=== PATIENT | male | born 1965 | race Caucasian/White ===

== ENCOUNTER 2025-04-24 19:20 | Emergency (ER) | payer OTHER, SELFPAY ==
[2025-04-24 19:20] VITALS: BP 134/93; PULSE 99; RESP 18; TEMP 37.3; O2SAT 100; BMI 28.3
--- NOTE | 2025-04-24 19:43 | EX.ED.DYSGE1 ---
HPI History of Present Illness Chief Complaint: Other, Pain/Inj Informant: patient Onset/Context/Timing Onset: Today Context: Gradual Onset Timing: Continuous Current Severity: Mild Maximum Severity: Mild Narrative Narrative: 59-year-old male no seen past medical history. States today noticed a bump on his neck that he thinks began yesterday. Denies any fever or chills. No discharge. No prior history. Denies recent illness. Prior similar symptoms: No Recent Illness/Hospitalization: No PFSH PFSH Medical History no medical history no medical history Home Medications ?Medication ?Instructions ?Recorded ?Last Taken ?Type cephalexin 500 mg capsule 500 mg PO Q6 #40 CAPSULES 04/24/25 Unknown Rx Allergy/AdvReac Type Severity Reaction Status Date / Time No Known Allergies Allergy Verified 04/24/25 19:31 Surgical History no surgical history no surgical history ROS ROS ED ROS Narrative Denies recent illness. Constitutional Constitutional ED: Denies chills or fever(s) Eyes Eyes: Denies blurry vision ENT ENT ED: Denies ear pain Cardiovascular Cardiovascular: Denies chest pain Respiratory/Chest Respiratory/Chest: Denies cough or dyspnea Gastrointestinal Gastrointestinal: Denies abdominal pain Genitourinary Genitourinary ED: Denies dysuria or hematuria Musculoskeletal Musculoskeletal: Denies arthralgias Integumentary Reports abscess Neurologic Neurologic: Denies headache(s) Psychiatric Psychiatric: Denies anxiety or depression Endocrine Endocrinology: Denies cold intolerance Hematologic/Lymphatic Hematologic/Lymphatic: Reports none Allergic/Immunologic Allergic/Immunologic ED: Denies mouth swelling, tongue swelling or urticaria EXAM Physical Exam Narrative Exam Narrative: Well-appearing 39-year-old male sitting upright on the edge of the bed. Vital signs stable afebrile. No distress. 2 family members present. H EENT exam appears Ramming Actilite. Active motions are intact. Moist with membranes. Neck right side of his neck at the base between the neck and the shoulder is an area parotid inch long and half an inch wide and it looks like indurated skin. Proximately ingrown hair. It does look infected. There is no fluctuance. There is no surrounding cellulitis. It is right where the color of the shirt would meet the base of his neck. There is no lymphadenopathy. Lungs clear equal and symmetrical bilaterally. Heart regular rhythm no murmur. Chest wall nontender. Abdomen soft nontender. Back nontender. Moving all 4 extremities. Nontender no edema. No rashes. Const Vital Signs: 04/24/25 19:20 Temperature 99.1 F Temperature Source Oral Pulse Rate 99 Respiratory Rate 18 Blood Pressure 134/93 H Blood Pressure Mean 106 Pulse Ox 100 Oxygen Delivery Method Room Air Positive well nourished and well developed; Negative for cachectic, contractures or unkempt General Appearance ED: well developed and NAD; Negative for unkempt, cachectic, contractures, cyanotic or diaphoretic Nutritional Appearance: Negative for cachectic HEENT Reports moist mucous membranes Eyes PERRL and EOMs intact bilaterally Neck no lymphadenopathy, supple and no JVD Neck Narrative: Right base of his neck indurated tissue but no fluctuance or cellulitis most likely early infection. Or ingrown hair. General: Negative for tenderness Chest Wall inspection of chest normal and palpation of chest normal Resp normal respiratory effort and clear to auscultation bilaterally Cardio regular rate, regular rhythm, S1 normal heart sound, S2 normal heart sound and no murmurs GI normal to inspection, nondistended, normoactive bowel sounds, non-tender, non-distended and no masses Auscultation: normoactive bowel sounds Palpation: soft; Negative for tender, guarding or rebound tenderness present Back/Spine no CVA tenderness Extremity normal to inspection General Extremety ED: Negative for edema or tenderness General Extremity: Negative for edema Neuro oriented x3 and CN's II-XII intact bilaterally Sensorium / Orientation: alert Motor Exam: strength 5/5 throughout Psych mental status grossly normal Appearance: Negative for unkempt Attitude: No agitated Mood & Affect: Negative for depressed, anxious or tearful Skin no wounds and skin turgor normal Skin Narrative: Base of right neck area about half an inch to an inch or 2 in length. Consistent with indurated tissue early abscess. No fluctuance. No cellulitis. General Skin Exam: Negative for jaundice Lesions: No lesion noted Rashes: No rashes noted MDM MDM MDM Narrative Medical decision making narrative: 59-year-old male no seen past medical history. Early abscess base of his right neck. It is not fluctuant. I offered him to drain it and put him on antibiotics. He chose to just do antibiotics if he gets worse or return to have it I&D. Patient be placed on Keflex 500 mg 4 times a day for 10 days. First dose given here. Follow-up with not improving or return if needs drained. Discharge Plan Triage Chief Complaint: Other, Pain/Inj ED Provider: Jony Willams Dx/Rx/DC Orders Clinical Impression: Abscess Instructions: ED Abscess Antibiotic Treatment Only Prescriptions: New cephalexin 500 mg capsule 500 mg PO Q6 Qty: 40 0RF Primary Care Provider: Lauren Nazario NP Referrals: Lauren Nazario SENIOR RESEARCH ENGINEER, SENIOR RESEARCH ENGINEER-C [Primary Care Provider] - 3-5 Days if not improving Activity Restrictions/Additional Instructions: Warm compresses and warm shower hitting that spot. Motrin and Tylenol for pain. The antibiotic Keflex 1 pill 4 times a day till gone. This should progressively improved. Currently there is really nothing to drain its infected skin. If it develops a pus pocket gets much larger return and we can drain it. At this time I think we would just make it bleed. Print Language: Tongan Disposition Disposition: Home, Self Care
[2025-04-24 19:55] VITALS: BP 134/93; PULSE 99; RESP 18; TEMP 37.3; O2SAT 100
== END 2025-04-24 20:00 | disposition home or self-care (01) ==
LOC: ED 19:56
PROVIDERS: Emergency Provider Emergency Medicine; PCP Nurse Practitioner Family; Visit Provider Emergency Medicine
DX: L02.11 Cutaneous abscess of neck (principal)
CPT/HCPCS: 99282